=== PATIENT | female | born 1945 | race Hispanic/Latino ===

== ENCOUNTER 2023-03-18 09:04 | Outpatient (RCR) | payer MEDICARE ==
[~2023-03-18 09:04] MED LIST: ALBUTEROL0.63 MG/3 NEB; CARAFATE1 GM/10 ML PO; FLONASE ALLERG9.9 ML INH; GABAPENTIN100 MG PO; LIPITOR10 MG PO; LOSARTAN POTASS25 MG PO; METFORMIN HCL500 MG PO; NEXIUM40 MG PO; REGLAN10 MG PO; SYMBICORT 16010.2 GM INH
== END 2023-03-21 ==
LOC: PT 09:04
PROVIDERS: ATTEND Nurse Practitioner Family
DX: M62.830 Muscle spasm of back (principal)

== ENCOUNTER → 2024-04-27 | Outpatient (REF) | payer MEDICARE | LOC: DX 10:11 | PROVIDERS: ATTEND Surgery | DX: K44.9 Diaphragmatic hernia without obstruction or gangrene (principal) | CPT/HCPCS: 74246 ==

== ENCOUNTER 2024-11-17 08:02 | Inpatient (IN) | payer MEDICARE ==
[2024-11-09 14:10] LABS: BASOPHILS % 1.5 % (0.0-1.0); EOSINOPHILS % 3.4 % (0.0-6.0); LYMPHOCYTES % 41.3 % (18.0-39.1); MONOCYTES % 8.0 % (4.4-11.3); NEUTROPHILS % 45.6 % (38.7-80.0); RED CELL DISTRIBUTION WIDTH 14.8 % (11.7-14.4)
[2024-11-09 14:36] LABS: EST GLOMERULAR FILTRATION RATE 71.0 ML/MIN (>=60)
[~2024-11-17] VITALS: Ht 160 cm; Wt 48.1 kg
[2024-11-17] MEDS ORDERED: PROPOFOL IV EMULSION 10 MG/ML 20 ML VIAL ONE (09:56)
[2024-11-17] MEDS ORDERED: FENTANYL CITRATE/PF 100MCG/2 ML INJ ONE (09:57)
[2024-11-17] MEDS ORDERED: ROCURONIUM BROMIDE 1 ML IV ONE (09:57)
[2024-11-17] MEDS: LACTATED RINGER'S 1,000 ML ONE (11:46)
[2024-11-17] MEDS: DEXTROSE 5% 250ML 250 ML IV ONE (11:47)
[2024-11-17] MEDS ORDERED: EPHEDRINE SULFATE INJ 50 MG/ML VIAL ONE (11:57)
[2024-11-17] MEDS ORDERED: LIDOCAINE HCL 2% LOCAL INJ 5 ML SDV VIAL INJ ONE (11:58)
[2024-11-17] MEDS ORDERED: DEXAMETHASONE SOD PHOS INJ 4 MG/ML SDV ONE (11:58)
[2024-11-17] MEDS ORDERED: KETOROLAC TROMETHAMINE 30 MG/ML VIAL ONE (11:58)
[2024-11-17] MEDS ORDERED: ONDANSETRON HCL INJ 2MG/ML 2ML 2 MG/ML VIAL ONE (11:58)
[2024-11-17] MEDS: HYDROMORPHONE 1MG/1ML INJ IV PRN (12:25)
[2024-11-17 13:56] VITALS: PULSE 78; RESP 16; O2SAT 95
[2024-11-17] MEDS: DEXTROSE 5%/LACTATED RINGERS 1,000 ML IV ONE (14:14)
[2024-11-17] MEDS: SODIUM CHLORIDE 0.9% 1000ML 1,000 ML IV SCH (14:26)
[2024-11-17 14:36] VITALS: BP 143/85; PULSE 78; RESP 18; TEMP 97.9; O2SAT 96
[2024-11-17 15:35] VITALS: BP 143/82; PULSE 78; RESP 18; TEMP 97.9; O2SAT 96
[2024-11-17] MEDS: ONDANSETRON HCL INJ 2MG/ML 2ML 2 MG/ML VIAL IV PRN (16:10)
[2024-11-17 19:19] VITALS: PULSE 80; RESP 16
[2024-11-17 20:00] VITALS: BP 110/53; PULSE 81; RESP 16; TEMP 97.5; O2SAT 100
[2024-11-18] VITALS (10 sets, daily range): BP systolic 101–115; BP diastolic 53–83; PULSE 74–87; RESP 16–20; TEMP 97.1–98.6; O2SAT 96–99
[2024-11-18 05:48] LABS: BASOPHILS % 0.4 % (0.0-1.0); EOSINOPHILS % 0.0 % (0.0-6.0); LYMPHOCYTES % 19.3 % (18.0-39.1); MONOCYTES % 9.5 % (4.4-11.3); NEUTROPHILS % 70.4 % (38.7-80.0); RED CELL DISTRIBUTION WIDTH 14.6 % (11.7-14.4)
[2024-11-18 06:16] LABS: EST GLOMERULAR FILTRATION RATE 75.0 ML/MIN (>=60)
[2024-11-19] VITALS (7 sets, daily range): BP systolic 112–129; BP diastolic 53–73; PULSE 86–90; RESP 16–18; TEMP 97.8–98.6; O2SAT 94–100
[2024-11-19 05:23] LABS: BASOPHILS % 0.7 % (0.0-1.0); EOSINOPHILS % 0.7 % (0.0-6.0); LYMPHOCYTES % 23.1 % (18.0-39.1); MONOCYTES % 9.0 % (4.4-11.3); NEUTROPHILS % 66.2 % (38.7-80.0); RED CELL DISTRIBUTION WIDTH 14.8 % (11.7-14.4)
[2024-11-19 05:54] LABS: EST GLOMERULAR FILTRATION RATE 88.0 ML/MIN (>=60)
[2024-11-19 06:10] LABS: PHOSPHORUS 2.0 MG/DL (2.3-4.7)
[2024-11-19] MEDS ORDERED: MAALOX/LIDOCAINE/BENADRYL/NYST 30 ML BTL PO PRN (09:00)
[2024-11-19] MEDS ORDERED: MAGNESIUM SULFATE 2GM/50ML IV ONE (09:00)
[2024-11-19] MEDS ORDERED: BENZONATATE 100 MG CAP PO PRN (09:00)
[2024-11-19] MEDS: POLYETHYLENE GLYCOL 3350 17 GM PACK PO SCH (09:22)
[2024-11-19] MEDS: MAGNESIUM SULFATE 2GM/50ML 50 ML IV ONE (09:22)
[2024-11-19] MEDS: POTASSIUM PHOSPHATE 20 MM in SODIUM CHLORIDE 0.9% 250ML 250 ML IV ONE (11:26)
[2024-11-19] MEDS: ENOXAPARIN 30 MG/0.3 ML SYR SC SCH (17:33)
[2024-11-19] MEDS ORDERED: MIRTAZAPINE7.5 MG PO (17:56)
[2024-11-20] VITALS (10 sets, daily range): BP systolic 109–140; BP diastolic 60–74; PULSE 84–103; RESP 13–20; TEMP 97.9–98.8; O2SAT 93–100
[2024-11-20 05:37] LABS: BASOPHILS % 0.7 % (0.0-1.0); EOSINOPHILS % 2.2 % (0.0-6.0); LYMPHOCYTES % 26.0 % (18.0-39.1); MONOCYTES % 9.4 % (4.4-11.3); NEUTROPHILS % 61.4 % (38.7-80.0); RED CELL DISTRIBUTION WIDTH 14.7 % (11.7-14.4)
[2024-11-20 06:01] LABS: EST GLOMERULAR FILTRATION RATE 89.0 ML/MIN (>=60)
[2024-11-20] MEDS: BISACODYL 10 MG SUPP PR ONE (08:43)
[2024-11-20] MEDS ORDERED: ALBUTEROL/IPRATROPIUM 3 ML NEB NEB PRN (10:30)
[2024-11-20] MEDS ORDERED: ALPRAZOLAM 0.25 MG TAB PO PRN (10:30)
[2024-11-20] MEDS: MIRTAZAPINE 15 MG TAB PO SCH (21:00)
[2024-11-20] MEDS ORDERED: HYDROMORPHONE 1MG/1ML INJ IV PRN (22:30)
[2024-11-21] VITALS (9 sets, daily range): BP systolic 115–128; BP diastolic 58–80; PULSE 76–91; RESP 16–18; TEMP 97.4–98.9; O2SAT 95–100
[2024-11-21] MEDS: ACETAMINOPHEN 325 MG TAB PO PRN (03:34)
[2024-11-21 07:54] LABS: PHOSPHORUS 1.3 MG/DL (2.3-4.7)
[2024-11-21 08:33] LABS: EST GLOMERULAR FILTRATION RATE 88.0 ML/MIN (>=60)
[2024-11-21] MEDS ORDERED: BISACODYL 10 MG SUPP PR PRN (10:45)
[2024-11-21] MEDS ORDERED: HYDROCODONE/APAP 10MG-325MG TAB PO PRN (10:45)
[2024-11-21] MEDS ORDERED: MAGNESIUM SULFATE 2GM/50ML IV ONE (11:00)
[2024-11-21] MEDS: CYANOCOBALAMIN INJ 1,000 MCG/ML VIAL IM SCH (11:27)
[2024-11-21] MEDS: METOCLOPRAMIDE HCL 10 MG TAB PO SCH (11:28)
[2024-11-21] MEDS: BISACODYL 10 MG SUPP PR ONE (11:28)
[2024-11-21] MEDS ORDERED: MAGNESIUM SULFATE 2GM/50ML 50 ML IV SCH (11:30)
[2024-11-21] MEDS: MAGNESIUM SULFATE 2GM/50ML 50 ML IV SCH (13:10)
[2024-11-21] MEDS: POTASSIUM PHOSPHATE 20 MM in SODIUM CHLORIDE 0.9% 250ML 250 ML IV SCH (15:27)
[2024-11-21] MEDS: SENNA-S TABLET PO SCH (17:50)
[2024-11-21] MEDS: MIRTAZAPINE 15 MG TAB PO SCH (20:41)
[2024-11-22] VITALS (9 sets, daily range): BP systolic 126–135; BP diastolic 66–78; PULSE 73–87; RESP 16–18; TEMP 97.8–98.6; O2SAT 95–100
[2024-11-22 07:05] LABS: PHOSPHORUS 2.0 MG/DL (2.3-4.7)
[2024-11-22 07:06] LABS: EST GLOMERULAR FILTRATION RATE 91 ML/MIN (>=60)
[2024-11-23 04:00] VITALS: BP 131/64; PULSE 84; RESP 16; TEMP 98.6; O2SAT 92
[2024-11-23 05:26] LABS: BASOPHILS % 0.7 % (0.0-1.0); EOSINOPHILS % 5.0 % (0.0-6.0); LYMPHOCYTES % 27.5 % (18.0-39.1); MONOCYTES % 9.6 % (4.4-11.3); NEUTROPHILS % 57.0 % (38.7-80.0); RED CELL DISTRIBUTION WIDTH 14.5 % (11.7-14.4)
[2024-11-23 05:51] LABS: EST GLOMERULAR FILTRATION RATE 89 ML/MIN (>=60)
[2024-11-23 06:12] LABS: PHOSPHORUS 2.3 MG/DL (2.3-4.7)
[2024-11-23 07:27] VITALS: BP 144/66; PULSE 83; RESP 19; TEMP 98.1; O2SAT 98
[2024-11-23 08:10] VITALS: BP 144/66; PULSE 83; RESP 19; TEMP 98.1; O2SAT 98
[2024-11-23 08:25] VITALS: PULSE 83; RESP 18; O2SAT 98
[2024-11-23 11:10] VITALS: BP 143/76; PULSE 89; RESP 19; TEMP 97.8; O2SAT 98
[2024-11-23] MEDS ORDERED: MIRALAX17 GM PO (13:25)
[2024-11-23] MEDS ORDERED: HYDROCODON-ACE1 EAC9 PO (13:25)
[2024-11-23] MEDS ORDERED: MIRTAZAPINE15 MG PO (13:25)
[2024-11-23] MEDS ORDERED: SENNA S TABLET1 EACH PO (13:25)
[2024-11-23] MEDS ORDERED: ONDANSETRON ODT4 MG PO (13:25)
[2024-11-23] MEDS ORDERED: METOCLOPRAMIDE10 MG PO (13:25)
[2024-11-23] MEDS ORDERED: BENZONATATE100 MG PO (13:25)
[2024-11-23] MEDS: HYDROCODONE/APAP 5MG-325MG TAB PO PRN (13:43)
== END 2024-11-23 16:01 | disposition home health service (06) | DRG 326 ==
LOC: OR 08:02 → PACU V 12:42 → MED/SURG 13:46
PROVIDERS: ADMIT Surgery; ATTEND Surgery
PROC: 0DV44ZZ Restriction of Esophagogastric Junction, Percutaneous Endoscopic Approach (ICD-10-PCS; 2024-11-17)
PROC: 0BQT4ZZ Repair Diaphragm, Percutaneous Endoscopic Approach (ICD-10-PCS; principal; 2024-11-17 10:08)
DX: K44.9 Diaphragmatic hernia without obstruction or gangrene (principal); E43 Unspecified severe protein-calorie malnutrition; Z68.1 Body mass index [BMI] 19.9 or less, adult; E11.9 Type 2 diabetes mellitus without complications; I10 Essential (primary) hypertension; E78.5 Hyperlipidemia, unspecified; M19.90 Unspecified osteoarthritis, unspecified site; M81.0 Age-related osteoporosis without current pathological fracture; R42 Dizziness and giddiness; R53.81 Other malaise; F41.0 Panic disorder [episodic paroxysmal anxiety]; E87.8 Other disorders of electrolyte and fluid balance, not elsewhere classified; R63.0 Anorexia; R13.10 Dysphagia, unspecified; R62.7 Adult failure to thrive; F41.8 Other specified anxiety disorders; K21.00 Gastro-esophageal reflux disease with esophagitis, without bleeding; K29.70 Gastritis, unspecified, without bleeding; Z79.84 Long term (current) use of oral hypoglycemic drugs; Z88.0 Allergy status to penicillin; Z88.2 Allergy status to sulfonamides
CPT/HCPCS: 36415; 71045; 71046; 80048; 80053; 82948; 83036; 83735; 84100; 84443; 85025; 93005; 94799; J0690; J1100; J1171; J1650; J1885; J2003; J2405; J2470; J3420; J3475; J7030; J7050